=== PATIENT | female | born 1980 | race Caucasian/White ===

== ENCOUNTER 2020-02-23 11:58 | Emergency (ER) | payer OTHER ==
--- NOTE | 2020-02-23 12:17 | ED Physician Documentation ---
PD HPI UPPER EXT INJURY - Stated complaint Stated Complaint: L FINGER INJ - Chief complaint Chief Complaint: Ext Problem - History obtained from History obtained from: Patient (Patient reports that about an hour prior to arrival to the ER today, she was out walking her dog on a leash when the dog saw his "father" he took off running , rounded a corner and the patient's pinky caught a pole and her pinky was hyperflexed backwards. Patient has pain at the proximal end of the pinky finger. she has limited motion to the finger now but is able to flex it.) - History of Present Illness Location: Left, Finger Type of injury: Blunt / blow Where injury occurred: Home Timing - details: Abrupt onset Pain level now: 2 Improved by: Nothing Worsened by: Moving Associated symptoms: Swelling. No: Numbness, Tingling, Discolored Review of Systems Ten Systems: 10 systems reviewed and negative Constitutional: reports: Reviewed and negative Eyes: reports: Reviewed and negative Ears: reports: Reviewed and negative Nose: reports: Reviewed and negative Throat: reports: Reviewed and negative Cardiac: reports: Reviewed and negative Respiratory: reports: Reviewed and negative GI: reports: Reviewed and negative : reports: Reviewed and negative Musculoskeletal: reports: Extremity pain, Joint swelling (left pinky finger.) PD PAST MEDICAL HISTORY - Present Medications Home Medications: Ambulatory Orders Medication Instructions Recorded Confirmed Hydrocodone/Acetaminophen 1 - 2 each PO Q6H PRN #14 tablet 02/23/20 [Hydrocodon-Acetaminophen 5-325] - Allergies Allergies/Adverse Reactions: Allergies Allergy/AdvReac Type Severity Reaction Status Date / Time No Known Drug Allergies Allergy Verified 02/23/20 12:08 PD ED PE NORMAL - General General: Alert and oriented X 3, No acute distress - HEENT HEENT: Atraumatic, PERRL, EOMI - Cardiac Cardiac: RRR - Respiratory Respiratory: No respiratory distress - Extremities Extremities: No deformity. No: No tenderness to palpate, No edema - Neuro Neuro: Alert and oriented X 3 Eye Opening: Spontaneous Motor: Obeys Commands Verbal: Oriented GCS Score: 15 - Psych Psych: Normal mood, Normal affect PD ED PE EXPANDED - Extremities Extremities: Tenderness, Swelling, Left finger(s) (5th digit (little finger), TTP to the proximal phalanx. ) Results - Vitals Vitals: Vital Signs - 24 hr 02/23/20 12:01 Temperature 36.9 C Heart Rate 110 H Respiratory 20 Rate Blood Pressure 152/84 H O2 Saturation 100 Oxygen O2 Source Room air - Rads (name of study) No standard instances Radiology: EMP read contemporaneously (proximal phalanx spiral fracture 5th digit, slightly displaced. ) PD MEDICAL DECISION MAKING - ED course Complexity details: reviewed results, re-evaluated patient, d/w patient Departure - Departure Disposition: 01 Home, Self Care Clinical Impression: Fracture of phalanx of digit of hand Qualifiers: Encounter type: initial encounter Fracture type: closed Qualified Code(s): S62.609A - Fracture of unspecified phalanx of unspecified finger, initial encounter for closed fracture Condition: Good Instructions: ED Fx Finger Closed Prescriptions: Hydrocodone/Acetaminophen [Hydrocodon-Acetaminophen 5-325] 1 - 2 each PO Q6H PRN #14 tablet PRN Reason: pain Comments: You have a fracture of the proximal end of your little finger on the left hand. You were placed in a splint today, leave the splint on until you follow-up with orthopedics. Follow-up with your primary care physician or orthopedics within a week. Keep the splint dry and clean. You can use Tylenol for pain. I have given you a small amount of Vicodin to take for the next few days for severe pain.
[2020-02-23 13:03] VITALS: BP 130/90
--- NOTE | 2020-02-23 13:03 | XRAY Report ---
Reason: 5TH DIGIT pain Procedure Date: 02/23/2020 Accession Number: [id number] / [id number] Procedure: XR - Finger(s) LT CPT Code: Final Report FULL RESULT: EXAM: LEFT 5TH DIGIT RADIOGRAPHY EXAM DATE: 02/23/2020 12:27 PM. CLINICAL HISTORY: Left 5th digit pain COMPARISON: None. TECHNIQUE: 3 views. FINDINGS: Bones: Minimally impacted oblique fifth proximal phalangeal fracture, extending from the medial aspect of the proximal phalangeal base to the lateral aspect of the mid diaphysis. Joints: Normal alignment. Soft Tissues: Swelling overlying the fracture site. IMPRESSION: Minimal impacted oblique fifth proximal phalangeal fracture. RADIA
== END 2020-02-23 13:00 | disposition home or self-care (01) ==
LOC: ED 11:58
DX: S62.617A Displaced fracture of proximal phalanx of left little finger, initial encounter for closed fracture (principal); W22.09XA Striking against other stationary object, initial encounter; Y93.K1 Activity, walking an animal; Y92.009 Unspecified place in unspecified non-institutional (private) residence as the place of occurrence of the external cause
CPT/HCPCS: 73140; 99283; 99284

== ENCOUNTER 2020-03-02 06:42 | Day surgery (SDC) | payer OTHER ==
[~2020-03-02 06:42] MED LIST: CEFAZOLIN SODIUM IN 0.9 % NACL 2 GM/100 ML BAG IV ONE
[2020-03-02] MEDS ORDERED: ONDANSETRON 4 MG/2 ML VIAL IVP ONE (06:43)
[2020-03-02] MEDS ORDERED: PROPOFOL 200 MG/20 ML VIAL IVP ONE (06:43)
[2020-03-02] MEDS ORDERED: DEXAMETHASONE 4 MG/ML VIAL IVP ONE (06:43)
[2020-03-02 06:47] LABS: HCG UR QUAL NEGATIVE
[2020-03-02] MEDS ORDERED: BUPIVACAINE 0.25% PF 30 ML VIAL ONE (07:07)
--- NOTE | 2020-03-02 07:07 | ANESTHESIA ---
Pre-Anesthesia VS, & Labs - Diagnosis left little finger fracture - Procedure closed reduction and percutaneous pinning. Vital Signs: Temp Pulse Resp BP Pulse Ox 37.1 C 100 20 180/94 H 98 03/02/20 06:35 03/02/20 06:35 03/02/20 06:35 03/02/20 06:35 03/02/20 06:35 Height 5 ft 5 in Weight (kg) 122.47 kg Body Mass Index 46.5 - NPO >8 hours - Is Patient ?: No Home Medications and Allergies Home Medications: Ambulatory Orders No Known Home Medications 02/29/20 No Known Home Medications 02/29/20 Allergies/Adverse Reactions: Allergies Allergy/AdvReac Type Severity Reaction Status Date / Time No Known Drug Allergies Allergy Verified 02/23/20 12:08 Anes History & Medical History - Anesthetic History Anesthesia Complications: reports: No previous complications, Other-see comment (previous 3 sections.) Family history of Anesthesia Complications: Denies Family history of Malignant Hyperthermia: Denies - Medical History Cardiovascular: reports: None Pulmonary: reports: None Gastrointestinal: reports: GERD Urinary: reports: None Neuro: reports: None Musculoskeletal: reports: None Endocrine/Autoimmune: reports: None Blood Disorders: reports: None Skin: reports: Psoriasis Smoking Status: Never smoker Psychosocial: reports: No issues indicated - Surgical History Gynecologic: section Exam General: Alert, Oriented x3, Cooperative, No acute distress Dental: WNL Mouth Openin Fingerbreadth Neck Mobility: Normal Mallampati classification: III Respiratory: Lungs clear, Normal breath sounds, No respiratory distress, No accessory muscle use Cardiovascular: Regular rate, Normal S1, Normal S2, No murmurs Abdomen: Normal bowel sounds, Soft, No tenderness, No hepatospenomegaly, No masses Extremities: No clubbing, No cyanosis, No edema, Normal pulses, No tenderness/swelling Neurological: Normal gait, Normal speech, Strength at 5/5 X4 ext, Normal tone, Sensation intact, Cranial nerves 3-12 NL, Reflexes 2+ Mental/Cognitive Status: Alert/Oriented X3, Normal for patient Cognitive Status: Within normal limits Plan Anesthesia Type: General Consent for Procedure(s) Verified and Reviewed: Yes Code Status: Attempt Resuscitation ASA classification: 2-Mild systemic disease Is this case an emergency?: Yes
[2020-03-02] MEDS ORDERED: LACTATED RINGERS 1,000 ML IV ONE (07:09)
[2020-03-02] MEDS ORDERED: BUPIVACAINE 0.25% PF 30 ML VIAL SUBQ ONE (07:15)
[2020-03-02] MEDS: HYDROmorphone 1 MG/ML CARPUJECT ONE ×3 (08:55→09:10)
[2020-03-02] MEDS ORDERED: ONDANSETRON 4 MG/2 ML VIAL IVP PRN (08:58)
[2020-03-02] MEDS ORDERED: oxyCODONE 5 MG TABLET PO PRN (08:58)
--- NOTE | 2020-03-02 09:04 | OPERATIVE REPORT ---
Operative Report - Other Other Information/Narrative: Date of Surgery: 02 Mar 2020 Pre-Op Diagnosis: Left small finger P1 shaft fracture, unstable, displaced Procedure: Closed reduction and percutaneous fixation of left small finger P1 fracture Postop Diagnosis: Same Primary Surgeon: Kong Ritter Secondary Surgeon: None Complications: None Tourniquet Time: None EBL: 0 cc Implants: 1.1 mm Bull wire x2. Keven balls were applied Postoperative Protocol: Splint on and pins in until 4 to 6 weeks. Pins will be removed and activity will be advanced at that point. Indication For Surgery: 40-year-old female sustained a left small finger injury on 22 February while she was walking her dog. The dog pulled her into a post and her finger struck the post and twisted. The emergency room made the diagnosis and put her into a provisional splint and I saw her in clinic about a week afterwards. the goal of surgery was to reduce the fracture and correct any rotational and angular deformity and then hold it in this position until healing can occur. The risks, benefits, and alternatives were discussed. Risks include pain, bleeding, infection, damage to nearby structures, numbness, lack of symptom relief, implant complications, nonunion, malunion need for further surgery, DVT, PE, stroke, and . Written consent was obtained. Procedure in Detail: The patient was met in the pre-operative hold area on the day of the procedure. The operative extremity was signed and questions were answered. The patient was brought to the operating room and a general anesthetic was administered. Supine position was used and all bony prominences were padded. Standard prepping and draping was performed. A time out confirmed patient identification, laterality, procedure, allergies, antibiotics, and images. Fluoroscopy was brought in and the fracture was identified. The fracture was manipulated and confirmed to be mobile. I then performed a reduction with traction rotation and manipulation with my fingers. A [id number] reduction clamp was then placed medial to lateral perpendicular to the fracture line. Fluoroscopy was used to confirm reduction in the AP and lateral planes. Satisfied with the reduction 2 K wires were placed perpendicular to the fracture site bicortically. Fluoroscopy confirmed their positions and light stress confirm stability of the fracture. The pins were bent and Keven balls were applied. Final images were taken and a splint was applied. The patient was awakened and transferred to the recovery room.
[2020-03-02 09:50] VITALS: BP 154/91
[2020-03-02] MEDS ORDERED: fentaNYL 100 MCG/2 ML VIAL IVP ONE (17:43)
[2020-03-02] MEDS ORDERED: LIDOCAINE-MPF 2% 5 ML VIAL IM ONE (17:43)
== END 2020-03-02 06:43 | disposition home or self-care (01) ==
LOC: SDS 06:42
PROVIDERS: ATTEND Orthopaedic Surgery
DX: S62.617A Displaced fracture of proximal phalanx of left little finger, initial encounter for closed fracture (principal)
CPT/HCPCS: 81025

== ENCOUNTER 2020-08-29 07:50 | Emergency (ER) | payer OTHER ==
[2020-08-29] MEDS ORDERED: LIDOCAINE-EPINEPH-TETRACAINE 3 ML SYRINGE TOP STA (08:56)
[2020-08-29] MEDS ORDERED: OXYMETAZOLINE HCL 100 SPRAYS BOTTLE NAS STA (08:56)
--- NOTE | 2020-08-29 08:59 | ED Physician Documentation ---
History of Present Illness - Stated complaint Stated Complaint: NOSE BLEEDING - Chief complaint Chief Complaint: Heent - History obtained from History obtained from: Patient - Additonal information Additional information: Pt comes to the emergency department complaining of intermittent nosebleeds for the last several days. She denies any nasal trauma. She states this is never happened to her before. She has not had allergies or a cold recently. She states that in general, her episodes have lasted for a few minutes and then resolved, but this morning, she had a 20-minute episode of epistaxis and this is what prompted her to come to the ED. She states the bleeding has completely stopped now. She has not been using any vasoconstrictors, but has been applying A&E ointment to her right naris to try to keep it moist. Patient is not known to be chronically hypertensive, but has been found to have quite elevated readings here in the emergency department. No other complaints at this time. Review of Systems Ten Systems: 10 systems reviewed and negative Constitutional: reports: Reviewed and negative Eyes: reports: Reviewed and negative Ears: reports: Reviewed and negative Nose: reports: Epistaxis. denies: Rhinorrhea / runny nose, Congestion Throat: reports: Reviewed and negative Cardiac: reports: Reviewed and negative Respiratory: reports: Reviewed and negative GI: reports: Reviewed and negative : reports: Reviewed and negative Skin: reports: Reviewed and negative Musculoskeletal: reports: Reviewed and negative Neurologic: reports: Reviewed and negative Psychiatric: reports: Reviewed and negative Endocrine: reports: Reviewed and negative Immunocompromised: reports: Reviewed and negative PD PAST MEDICAL HISTORY - Past Medical History Cardiovascular: None Respiratory: None Neuro: None Endocrine/Autoimmune: None 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 : None HEENT: None Psych: Bipolar disorder Musculoskeletal: None Derm: Psoriasis - Past Surgical History Past Surgical History: 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 - Present Medications Home Medications: Ambulatory Orders Medication Instructions Recorded Confirmed Metoprolol Tartrate [Lopressor] 25 mg PO BID #60 tablet 08/29/20 - Allergies Allergies/Adverse Reactions: Allergies Allergy/AdvReac Type Severity Reaction Status Date / Time No Known Drug Allergies Allergy Verified 08/29/20 08:08 - Social History Does the pt smoke?: No Smoking Status: Never smoker Does the pt drink ETOH?: Yes Does the pt have substance abuse?: No - Immunizations Immunizations are current?: Yes - POLST Patient has POLST: No PD ED PE NORMAL - Vitals Vital signs reviewed: Yes - General General: Alert and oriented X 3, No acute distress - HEENT HEENT: Atraumatic, PERRL, EOMI, Moist mucous membranes, Other ( moderate amount of clotted blood in right naris with no active bleeding.) - Neck Neck: Supple, no meningeal sign - Respiratory Respiratory: No respiratory distress - Derm Derm: Normal color, Warm and dry, No rash - Extremities Extremities: No deformity - Neuro Neuro: Alert and oriented X 3 - Psych Psych: Normal mood, Normal affect Results - Vitals Vitals: Vital Signs - 24 hr 08/29/20 08/29/20 08/29/20 09:38 09:56 11:03 Temperature 36.7 C Heart Rate 104 H 9 L Respiratory 18 16 Rate Blood Pressure 178/111 H 180/118 H 200/135 H O2 Saturation 100 99 Oxygen O2 Source Room air PD MEDICAL DECISION MAKING - ED course Complexity details: re-evaluated patient, considered differential, d/w patient ED course: Pt was given a dose of oxymetazoline and a LET cottonball was placed in her R naris. Pt had brief bleeding just before this, but bleeding stopped with vasoconstriction and holding pressure. The patient's blood pressure was consistently significantly elevated, and I was concerned that the pt had undiagnosed hypertension. While she was asymptomatic from the perspective of the HTN, the HTN was certainly contributing to the repeated bleeding. We discussed the need for blood pressure control, and I have started the pt on metoprolol. She understands the need to follow up very soon with her PCP, regarding this. We have discussed packing her nose vs using vasoconstrictors and avoidance of epistaxis triggers, and pt prefers the latter for now. I have given her f/u information for ENT. We have discussed the usual indications for return. Departure - Departure Disposition: 01 Home, Self Care Clinical Impression: Epistaxis High blood pressure Qualifiers: Hypertension type: unspecified Qualified Code(s): I10 - Essential (primary) hypertension Condition: Stable Instructions: ED Nosebleed, ED Hypertension New Begin Tx Follow-Up: FELECIA ULLOA MD [Physician No Access] - Prescriptions: Metoprolol Tartrate [Lopressor] 25 mg PO BID #60 tablet Comments: The nasal spray every 12 hours for the next 3 days. You may also continue to apply the A&D ointment or Vaseline and gently dab inside of your right nostril. However, you should avoid blowing, dabbing, rubbing, picking, or otherwise disrupting your nose for at least the next 3 days. Please also avoid coughing, sneezing, or bending over if at all possible to also avoid restarting the bleeding. Your blood pressure is quite high here in the emergency department despite numerous measurements. You have been given a dose of blood pressure medicine here, and will be started on a low to medium dose of a blood pressure medication as an outpatient. Is very important that you follow-up with your primary care physician to discuss whether this is a good option for you, or whether you need a dose adjustment. Please call as soon as possible to make an appointment to be seen within the next week for this. If you continue to have issues with nasal bleeding, you will need to follow-up with the ENT. Follow-up information has been provided. Discharge Date/Time: 08/29/20 11:14
[2020-08-29] MEDS ORDERED: METOPROLOL SUCCINATE 25 MG TABLET PO STA (09:57)
[2020-08-29] MEDS ORDERED: METOPROLOL SUCCINATE 25 MG TABLET PO SCH (10:00)
[2020-08-29 11:08] VITALS: BP 200/135
== END 2020-08-29 11:14 | disposition home or self-care (01) ==
LOC: ED 07:50
DX: R04.0 Epistaxis (principal); I10 Essential (primary) hypertension
CPT/HCPCS: 99282; 99284; A9270